=== PATIENT | male | born 1950 | race Caucasian/White ===

== ENCOUNTER 2022-01-12 07:49 | Day surgery (SDC) | payer MEDICARE ==
[~2022-01-12] VITALS: Ht 178 cm; Wt 98.0 kg
[~2022-01-12 07:49] MED LIST: ALLERGY RELIEF10 M2 PO; ASPIRIN EC81 MG PO; BACLOFEN 10MG T10 MG PO; CENTRUM ADULTS1 EACH PO; CLONIDINE HCL0.1 MG PO; FLEXERIL10 MG PO; FLEXERIL5 MG PO; GABAPENTIN100 MG PO; LOSARTAN-HCTZ1 EAC1 PO; MEDROL 4MG DOSEP4 MG PO; OXY-IR 5MG5 MG PO; OXYBUTYNIN CHLOR5 MG PO; PERCOCET 5-3251 EACH PO; PRILOSEC20 MG PO; SINEQUAN10 MG PO; STOOL SOFTENER100 MG PO
[2022-01-13 07:38] LABS: BASOPHIL 0.3 % (0-2); EOSINOPHIL 0.1 % (0-7); HCT 35.3 % (42.0-52.0); HGB 11.9 g/dl (13.2-18.0); LYMPHOCYTE 31.4 % (15-48); MCH 35.6 pg (25.0-31.0); MCHC 33.7 g/dL (32.0-36.0); MCV 105.7 fL (78.0-100.0); MONOCYTE 6.4 % (0-12); MPV 9.7 fL (6.0-9.5); NEUTROPHIL 61.3 % (41-80); NRBC 0; PLT 197 K/uL (150-400); RBC 3.34 M/uL (4.70-6.00); RDW 13.7 % (11.5-14.0); WBC 7.4 K/uL (4.0-10.5)
[2022-01-13] MEDS ORDERED: FEOSOL325 MG PO (08:52)
[2022-01-13 09:03] LABS: BUN/CREAT RATIO (CALC) 16.3 RATIO; CREATININE 1.23 mg/dL (0.67-1.17); POTASSIUM 4.2 mmol/L (3.5-5.1)
[2022-01-13] MEDS ORDERED: MELOXICAM15 MG PO (14:43)
== END 2022-01-13 15:13 | disposition home health service (06) ==
LOC: FAS 07:49 → FMS 10:45 → FAS 01-13 15:13
PROVIDERS: Orthopaedic Surgery
DX: M17.12 Unilateral primary osteoarthritis, left knee (principal); I10 Essential (primary) hypertension; C91.10 Chronic lymphocytic leukemia of B-cell type not having achieved remission
CPT/HCPCS: 36415; 73560; 80048; 85025; 86850; 86900; 86901; 94010; 94760; 97110; 97162; 97166; 97530-GP; 97535; C1713; C1776; J0171; J1100; J1170; J1885; J2250; J2270; J2405; J2704; J2795; J3010; J3370; J7040; J7120